=== PATIENT | male | born 1960 | race Caucasian/White ===

== ENCOUNTER 2017-04-25 09:59 | Outpatient (CLI) | payer BC ==
--- NOTE | 2017-04-25 12:08 | RAD ---
RADIOGRAPH ABDOMEN 1 VIEW: Date: 04/25/17 HISTORY: 56-year-old male with renal stones. COMPARISON: No prior KUBs. FINDINGS: There is an approximately 7 x 4 mm irregularly shaped calcification in the left upper quadrant, over lying the lower pole of the left renal shadow. Bowel gas pattern is normal. No signs of organomegaly . IMPRESSION: Left renal lower pole calculus of kidney (left nephrolithiasis). POS: [facility]
== END 2017-04-25 10:00 | disposition home or self-care (01) ==
LOC: RAD 09:59
PROVIDERS: ATTEND Urology
DX: N20.0 Calculus of kidney (principal)
CPT/HCPCS: 74000

== ENCOUNTER 2017-06-15 16:43 | Outpatient (CLI) | payer BC ==
[2017-06-15 17:28] LABS: Hematocrit 42.3 % (42.0-52.0); Mean Platelet Volume 7.2 fL (7.4-10.4); Red Blood Cell (RBC) Count 4.65 mill/uL (4.70-6.10); White Blood Cell (WBC) Count 5.4 thou/uL (4.8-10.8)
[2017-06-15 17:55] LABS: Anion Gap 10 mmol/L (10-20); BUN (Urea Nitrogen) 26 mg/dL (8.4-25.7); Calc. Creatinine Clearance 0 mL/min (70-130); Calcium 9.6 mg/dL (7.8-10.44); Carbon Dioxide 31 mmol/L (22-29); Chloride 103 mmol/L (98-107); Estimated GFR-MDRD 64
[2017-06-15 19:36] LABS: Bilirubin Negative (Negative); Blood, Urine Negative (Negative); Glucose, Urine (Dipstick) Negative (Negative); Ketone, Urine Negative (Negative); Nitrite Negative (Negative); Protein, Urine (Dipstick) Negative (Neg-Trace); Urobilinogen 0.2 mg/dL (0.2-1.0)
[2017-06-15 19:44] LABS: Bacteria/HPF None Seen HPF (None Seen); Hyaline Casts/LPF 0-3 HYALINE CAST LPF (0-3 Hyaline); RBC/HPF 0-3 HPF (0-3); Squamous Epithelial None Seen HPF (0-3); WBC/HPF 0-3 HPF (0-3)
== END 2017-06-15 16:44 | disposition home or self-care (01) ==
LOC: LABBT 16:43 → SJX 16:44
PROVIDERS: ATTEND Urology
DX: Z01.818 Encounter for other preprocedural examination (principal); N20.0 Calculus of kidney
CPT/HCPCS: 80048; 81001; 85027

== ENCOUNTER → 2017-06-21 | Day surgery (SDC) | payer BC ==
[2017-06-15 16:57] VITALS: BMI 23.1
[~2017-06-21] MED LIST: CEFAZOLIN 1 GM, Syringe 2.5 ML in Sterile Water 7.5 ML SLOW IVP SCH; Fentanyl 100 MCG/2 ML VIAL ONE; Furosemide 20 MG/2 ML VIAL ONE; Glycopyrrolate 0.2 MG/ML 5 ML SYRINGE ONE; HYDROcodone/Acetaminophen 5/325 mg Tablet ONE; Lidocaine 1% PF 5 ML VIAL ONE; Midazolam HCl 2 mg/2 ml Vial ONE; Ondansetron HCl/PF 4 MG/2 ML Vial ONE; PHENYLEPHRINE-NS 100 MCG/ML 10 ML SYRINGE ONE; Propofol 200 MG/20 ML VIAL ONE; ePHEDrine/0.9% NaCl/PF SYRINGE 50 mg/10 ml ONE
--- NOTE | 2017-06-21 10:43 | RAD ---
ABDOMEN 1 VIEW: Date: 06/21/17 COMPARISON: 04/25/17. HISTORY: Preoperative exam. Renal calculi. FINDINGS: Nonspecific bowel gas pattern. Scattered fecal material in nondistended, nondilated colon. 5 mm calci fication projecting over the mid to lower left renal silhouette. 2 and 3 mm calcifications projecting over the right renal silhouette. Densities projecting in left and right hemipelvis. IMPRESSION: Bilateral renal calculi. POS: [facility]
--- NOTE | 2017-06-21 12:51 | OP ---
DATE OF SERVICE: 06/21/2017 PREOPERATIVE DIAGNOSIS: Left renal stone. POSTOPERATIVE DIAGNOSIS: Left renal stone. PROCEDURE: Extracorporeal shock wave lithotripsy. SURGEON: Lizette Mcnair M.D. ANESTHESIA: General. FINDINGS: Adequate fragmentation of the left lower pole stone that did seem quite dense. COMPLICATIONS: No complications. SPECIMENS: No specimens. DRAINS: No drain remaining. ESTIMATED BLOOD LOSS: No blood loss. The patient is a 57-year-old male who was seen in the office for bilateral stone disease. On the rig ht were 2 smaller stones and the left was approximately 7-8 mm stone in the lower pole. We discussed doing elective therapy on this one with definitive hydration and changes in percussion in the postop erative period to aid in passage of the fragments. The patient was brought to the room by anesthesia, laid on the table in supine position. After recei ving general anesthetic he was positioned supine and the extracorporal wave lithotripter was position ed and delivered 2500 shocks at a maximum power initially at 4, which was raised to 5 given the stone did seem more dense and was not breaking up as readily as expected. The rate was varied from 60-90 and turned back down to 70 for the last 500 shocks. The patient tolerated the procedure well and was then awakened and transferred back in stable condition.
== END ==
LOC: SDC 07:59
PROVIDERS: ATTEND Urology
PROC: 0TF4XZZ Fragmentation in Left Kidney Pelvis, External Approach (ICD-10-PCS; principal; 2017-06-21)
DX: N20.0 Calculus of kidney (principal); Z88.5 Allergy status to narcotic agent; N40.0 Benign prostatic hyperplasia without lower urinary tract symptoms; Z98.890 Other specified postprocedural states
CPT/HCPCS: 74000; A4216; J0690; J1940; J2001; J2250; J2405; J2704; J3010

== ENCOUNTER 2017-07-26 10:06 | Outpatient (CLI) | payer OTHER ==
--- NOTE | 2017-07-26 11:58 | RAD ---
RADIOGRAPH ABDOMEN ONE VIEW: Date: 07-26-17 Time: 10:35 a.m. History: 57-year-old male with renal stones. (Calculus of kidney) Comparison: KUB 06-21-17 FINDINGS: Two tiny focal calcifications, on the order of 2 and 3 -4 mm each, overlying the right renal lower po le shadow are again demonstrated. Previously demonstrated 5 mm calcific density in the left upper kei drant now has a different appearance. Currently, it has been replaced by a vertically elongated, thin array of calcifications which in aggregate measure approximately 16 x 2 mm. Bowel gas pattern is nor mal. Multiple prominent phleboliths in the pelvis bilaterally. IMPRESSION: 1. Right nephrolithiasis (Calculus of kidney). 2. The appearance of the left renal calculus has changed. Perhaps the patient has undergone lithotrip sy. Recommend correlation with procedural history. POS: [facility]
== END 2017-07-26 10:07 | disposition home or self-care (01) ==
LOC: RAD 10:06
PROVIDERS: ATTEND Urology
DX: N20.0 Calculus of kidney (principal)
CPT/HCPCS: 74018

== ENCOUNTER 2017-09-20 09:40 | Outpatient (CLI) | payer OTHER ==
--- NOTE | 2017-09-20 11:03 | RAD ---
ONE VIEW ABDOMEN: History: Renal calculi. Comparison: 07-25-17 FINDINGS: One view abdomen redemonstrates punctate calcification projecting over the left renal silhouette, unc hanged. Calcifications noted over the right renal silhouette are difficult to appreciate on the curre nt examination due to bowel gas and fecal material overlying the right kidney. Stable calcifications in the right and left hemipelvis. Nonspecific bowel gas pattern. No osseous abnormalities. IMPRESSION: Calculi as defined above. POS: [facility]
== END 2017-09-20 09:41 | disposition home or self-care (01) ==
LOC: RAD 09:40
PROVIDERS: ATTEND Urology
DX: N20.0 Calculus of kidney (principal)
CPT/HCPCS: 74018

== ENCOUNTER 2018-10-17 10:31 | Outpatient (CLI) | payer OTHER ==
--- NOTE | 2018-10-17 12:16 | RAD ---
SUPINE ABDOMEN: History: Renal calculi. Comparison: Supine abdominal film, 09-20-17. FINDINGS: Prominent stool throughout the colon and small bowel gas is present obscuring the renal outlines. Sev eral small calcifications overlie the right kidney. Two or three small calcifications in the left kid dena which are poorly seen due to the overlying bowel content. Phleboliths in the pelvis are unchanged . IMPRESSION: Renal calculi again seen although poorly defined due to overlying bowel content. No evidence of signi ficant change from prior exam. POS: [facility]
== END 2018-10-17 10:32 | disposition home or self-care (01) ==
LOC: RAD 10:31
PROVIDERS: ATTEND Urology
DX: N20.0 Calculus of kidney (principal)
CPT/HCPCS: 74018

== ENCOUNTER 2022-02-04 10:52 | Outpatient (CLI) | payer BC ==
[2022-02-04] MEDS ORDERED: Iopamidol-370 76% 500 ML 1 ML ONE (11:23)
== END 2022-02-04 10:53 | disposition home or self-care (01) ==
LOC: BICCT 10:52
PROVIDERS: ATTEND Urology
DX: R31.9 Hematuria, unspecified (principal); N13.1 Hydronephrosis with ureteral stricture, not elsewhere classified; N20.0 Calculus of kidney; N40.0 Benign prostatic hyperplasia without lower urinary tract symptoms; N43.3 Hydrocele, unspecified
CPT/HCPCS: 74178; 82565; Q9967

== ENCOUNTER 2022-03-23 16:11 | Outpatient (CLI) | payer BC ==
[2022-03-23 17:28] LABS: Mean Corpuscular HGB CONC 33.9 g/dL (32.0-36.0); Mean Corpuscular Hemoglobin 29.4 pg (27.0-33.0); Mean Corpuscular Volume 86.6 fl (81.2-95.1); Mean Platelet Volume 9.6 fl (7.4-10.4); Platelet Count 227 10x3/uL (150-450); Red Blood Cell (RBC) Count 4.77 10x6/uL (4.32-5.72)
[2022-03-23 17:34] LABS: Bilirubin Neg (Negative); Blood, Urine 250 (Negative); Clarity Clear (Clear); Glucose, Urine (Dipstick) Normal (Negative); Ketone, Urine Negative (Negative); Leukocyte Negative (Negative); Nitrite Negative (Negative); Protein, Urine (Dipstick) Negative (Neg-Trace); Specific Gravity, Urine 1.015 (1.005-1.030); Urobilinogen Normal mg/dL (Less than 2)
[2022-03-23 17:41] LABS: Squamous Epithelial 0-3 HPF (0-3); WBC/HPF 0-3 HPF (0-3)
[2022-03-23 17:42] LABS: Bacteria/HPF None Seen HPF (None Seen)
[2022-03-23 17:45] LABS: Anion Gap 12 mmol/L (10-20); BUN (Urea Nitrogen) 19 mg/dL (8.4-25.7); Calc. Creatinine Clearance 0 mL/min (70-130); Calcium 9.4 mg/dL (7.8-10.44); Carbon Dioxide 27 mmol/L (23-31); Chloride 102 mmol/L (98-107); Estimated GFR 54; Glucose 92 mg/dL (80-115); Potassium 4.1 mmol/L (3.5-5.1); Sodium 137 mmol/L (136-145)
[2022-03-23 17:46] LABS: PTT 25.7 sec (22.0-33.0); Prothrombin Time 11.1 sec (9.5-12.1)
== END 2022-03-23 16:12 | disposition home or self-care (01) ==
LOC: LABBT 16:11
PROVIDERS: ATTEND Urology
DX: Z01.818 Encounter for other preprocedural examination (principal); N20.0 Calculus of kidney; N40.1 Benign prostatic hyperplasia with lower urinary tract symptoms; N43.40 Spermatocele of epididymis, unspecified; Z20.822 Contact with and (suspected) exposure to COVID-19
CPT/HCPCS: 80048; 81001; 85027; 85610; 85730; 87086; 87811; 93005; 93010

== ENCOUNTER 2022-03-26 06:55 | Day surgery (SDC) | payer BC ==
[2022-03-25 11:11] VITALS: BMI 23.6
[2022-03-26] MEDS ORDERED: Iopamidol 30 ML ONE (08:42)
[2022-03-26] MEDS ORDERED: B & O ONE (08:42)
[2022-03-26] MEDS ORDERED: Famotidine/PF 20 mg/2ml Vial ONE (08:48)
[2022-03-26] MEDS ORDERED: SUGAMMADEX SODIUM 200 MG/2 ML VIAL ONE (08:48)
[2022-03-26] MEDS ORDERED: fentaNYL Citrate/PF 100 MCG/2 ML SYRINGE ONE (08:48)
[2022-03-26] MEDS ORDERED: Levofloxacin 500 mg/D5W 100 ml Premix Bag ONE (08:50)
[2022-03-26] MEDS ORDERED: PROPOFOL 200 MG/20 ML VIAL ONE (09:00)
[2022-03-26] MEDS ORDERED: Metoclopramide HCl 10 MG/2 ML VIAL ONE (09:00)
[2022-03-26] MEDS ORDERED: Ondansetron PF 4 MG/2 ML Vial ONE (09:00)
[2022-03-26] MEDS ORDERED: Lidocaine 1% MPF 2 ML VIAL ONE (09:00)
[2022-03-26] MEDS ORDERED: ePHEDrine 50 MG/ML VIAL ONE (09:00)
[2022-03-26] MEDS ORDERED: Glycopyrrolate 0.2 MG/ML 5 ML SYRINGE ONE (09:00)
[2022-03-26] MEDS ORDERED: Phenylephrine 10 MG/ML VIAL ONE (09:00)
[2022-03-26] MEDS ORDERED: Fentanyl 100 MCG/2 ML VIAL ONE (11:11)
[2022-03-26] MEDS ORDERED: HYDROcodone/Acetaminophen 5/325 mg Tablet ONE ×2 (12:29→12:30)
== END 2022-03-26 13:50 | disposition home or self-care (01) ==
LOC: SDC 06:55
PROVIDERS: ATTEND Urology
PROC: 0T768DZ Dilation of Right Ureter with Intraluminal Device, Via Natural or Artificial Opening Endoscopic (ICD-10-PCS; principal; 2022-03-26)
PROC: 0TC68ZZ Extirpation of Matter from Right Ureter, Via Natural or Artificial Opening Endoscopic (ICD-10-PCS; principal; 2022-03-26)
PROC: 0TC38ZZ Extirpation of Matter from Right Kidney Pelvis, Via Natural or Artificial Opening Endoscopic (ICD-10-PCS; principal; 2022-03-26)
DX: N20.2 Calculus of kidney with calculus of ureter (principal); N40.1 Benign prostatic hyperplasia with lower urinary tract symptoms; E78.5 Hyperlipidemia, unspecified; Z79.899 Other long term (current) drug therapy; Z88.1 Allergy status to other antibiotic agents; Z88.5 Allergy status to narcotic agent
CPT/HCPCS: 76000; 82365; 88300; C1769; C2617; J1956; J2370; J2405; J2704; J2765; J3010; J3490; Q9967; S0028

== ENCOUNTER 2022-05-19 12:00 | Outpatient (CLI) | payer BC | END 2022-05-19 12:01 | disposition home or self-care (01) | LOC: BICULT 12:00 | PROVIDERS: ATTEND Urology | DX: N20.0 Calculus of kidney (principal) | CPT/HCPCS: 76770 ==

== ENCOUNTER 2023-06-14 16:04 | Outpatient (CLI) | payer BC | END 2023-06-14 16:05 | disposition home or self-care (01) | LOC: BICRAD 16:04 | PROVIDERS: ATTEND Nurse Practitioner Family | DX: R10.32 Left lower quadrant pain (principal) | CPT/HCPCS: 74018 ==